=== PATIENT | female | born 1955 | race Caucasian/White ===

== ENCOUNTER 2023-06-26 09:45 | Outpatient (CLI) | payer MEDICARE | END 2023-06-26 09:46 | disposition home or self-care (01) | LOC: BICULT 09:45 → EDSEX 09:45 → BICULT 09:46 | PROVIDERS: ATTEND Specialist | DX: K80.50 Calculus of bile duct without cholangitis or cholecystitis without obstruction (principal); K76.0 Fatty (change of) liver, not elsewhere classified | CPT/HCPCS: 76700 ==

== ENCOUNTER 2025-02-14 01:58 | Emergency (ER) | payer OTHER ==
[2025-02-14] MEDS ORDERED: Acetaminophen 500 MG TAB ONE (02:55)
== END 2025-02-14 04:55 | disposition home or self-care (01) ==
LOC: ERS 01:58
DX: J06.9 Acute upper respiratory infection, unspecified (principal); I10 Essential (primary) hypertension
CPT/HCPCS: 87428; 99283